=== PATIENT | male | born 2000 | race African-American/Black ===

== ENCOUNTER 2024-01-09 08:15 | Emergency (ER) | payer OTHER, MEDICAID ==
[~2024-01-09] VITALS: Ht 193 cm; Wt 118.0 kg
[~2024-01-09 08:15] MED LIST: ALBU6.7H3; ASPIRIN
[2024-01-09 08:29] VITALS: O2SAT 99
[2024-01-09] MEDS ORDERED: NEO/5DRO3 EACHEYE (09:25)
[2024-01-09 10:25] VITALS: BP 128/89; PULSE 82; RESP 16; TEMP 98.3
== END 2024-01-09 10:29 | disposition home or self-care (01) ==
LOC: ER 08:15
DX: H10.89 Other conjunctivitis (principal); J45.909 Unspecified asthma, uncomplicated
CPT/HCPCS: 99283

== ENCOUNTER 2024-12-02 21:44 | Emergency (ER) | payer MEDICAID, OTHER ==
[~2024-12-02] VITALS: Ht 195.6 cm; Wt 208.7 kg
[~2024-12-02 21:44] MED LIST changes: +MAXOS EACHEYE
[2024-12-02 21:48] VITALS: O2SAT 96
[2024-12-02] MEDS: METHOCARBAMOL 500MG TABLET PO ONE (23:20)
[2024-12-02] MEDS: KETOROLAC 30MG/ML VIAL IV ONE (23:26)
[2024-12-03] MEDS ORDERED: METH-653 MT (03:58)
[2024-12-03] MEDS ORDERED: IBUP-2029 MT (03:58)
[2024-12-03 04:07] VITALS: BP 155/92; PULSE 90; RESP 17; TEMP 36.9; O2SAT 95
== END 2024-12-03 04:18 | disposition home or self-care (01) ==
LOC: ER 21:44
DX: S39.012A Strain of muscle, fascia and tendon of lower back, initial encounter (principal); V89.2XXA Person injured in unspecified motor-vehicle accident, traffic, initial encounter; Y93.89 Activity, other specified; Y92.89 Other specified places as the place of occurrence of the external cause; Y99.8 Other external cause status
CPT/HCPCS: 99285; 96374; 71045; 72100; 72170; 72131; J1885